=== PATIENT | female | born 1940 | race Two or more races ===

== ENCOUNTER 2018-08-15 11:52 | Inpatient (IN) | payer MEDICARE, MEDICAID ==
[~2018-08-15] VITALS: Ht 162.6 cm; Wt 44.0 kg
[~2018-08-15 11:52] MED LIST: AMLO5TAB4 PO; ATEN50TA PO; INS7030 SUBCUT; PRAV20TA57 PO; VALS160T2 PO; ZOLP10TA6 PO
[2018-08-15] MEDS ORDERED: SODIUM CHLORIDE 0.9% 1,000 ML IV ONE (13:37)
[2018-08-15 14:10] LABS: BASOPHILS % 0.3 % (0.0-2.0); EOSINOPHILS % 0.3 % (0.0-5.0); HEMATOCRIT. 37.4 % (36.0-48.0); HEMOGLOBIN. 12.6 g/dL (12.0-16.0); LYMPHOCYTES % 9.6 % (20.0-50.0); MEAN CORPUSCULAR HEMOGLOBIN 31.5 pg (28.0-32.0); MEAN CORPUSCULAR VOLUME 93.3 fL (81.0-99.0); MONOCYTES % 5.9 % (2.0-8.0); NEUTROPHILS % 83.9 % (40.0-76.0); PLATELET 277 x1000/uL (130-400); RED BLOOD CELL COUNT 4.01 mill/uL (4.2-5.4); RED CELL DISTRIBUTION WIDTH 13.6 % (11.6-14.6)
[2018-08-15 14:16] LABS: PARTIAL THROMBOPLASTIN TIME 28.3 sec (23.4-31.0); PROTHROMBIN TIME 10.2 sec (9.1-11.1)
[2018-08-15 14:18] LABS: CHLORIDE 105 mEq/L (98-107)
[2018-08-15] MEDS ORDERED: DEXTROSE 50% WATER 50ML SYRINGE IV ONE (14:30)
[2018-08-15] MEDS ORDERED: SODIUM CHLORIDE 0.9% 10ML VIAL ONE (15:33)
[2018-08-15] MEDS ORDERED: CEFTRIAXONE 1 G PREMIX 50 ML IV ONE (15:45)
[2018-08-15 16:04] LABS: CLARITY URINE CLEAR (CLEAR); COLOR URINE YELLOW (YELLOW); KETONES URINE NEGATIVE (NEGATIVE); LEUKOCYTE ESTERASE URINE NEGATIVE (NEGATIVE); NITRITE URINE NEGATIVE (NEGATIVE); OCCULT BLOOD URINE NEGATIVE (NEGATIVE); PROTEIN URINE NEGATIVE (NEGATIVE); SPECIFIC GRAVITY URINE 1.005 (1.005-1.030); UROBILINOGEN URINE 0.2 E.U./dL (0.2-1.0)
[2018-08-15] MEDS ORDERED: ONDANSETRON HCL 4MG/2ML INJ IV PRN (17:15)
[2018-08-15] MEDS ORDERED: ACETAMINOPHEN 650MG SUPP PR PRN (17:15)
[2018-08-15] MEDS ORDERED: HYDROCODONE/ACETAMINOPHEN 5/325MG TABLET PO PRN (17:15)
[2018-08-15] MEDS ORDERED: ACETAMINOPHEN 650MG/20.3ML UDC GT PRN (17:15)
[2018-08-15] MEDS ORDERED: HYDROCODONE/ACETAMINOPHEN 10/325MG TABLET PO PRN (17:15)
[2018-08-15] MEDS ORDERED: ACETAMINOPHEN 325MG TABLET PO PRN (17:15)
[2018-08-15] MEDS ORDERED: DEXTROSE 50% WATER 50ML SYRINGE IV PRN (17:15)
[2018-08-15] MEDS ORDERED: INSULIN LISPRO 100 UNITS/ML SUBCUT SCH (18:20)
[2018-08-15] MEDS: BLOOD SUGAR DIAGNOSTIC STRIP TEST SCH (21:00)
[2018-08-15] MEDS: SODIUM CHLORIDE 0.45% 1,000 ML IV SCH (23:54)
[2018-08-15 23:59] LABS: CREATINE KINASE 94 IU/L (26-192); CREATINE KINASE MB FRACTION 1.5 ng/mL (0.5-3.6)
[2018-08-16] VITALS (8 sets, daily range): BP systolic 117–166; BP diastolic 43–67
[2018-08-16] MEDS: BLOOD SUGAR DIAGNOSTIC STRIP TEST SCH ×4 (06:25→20:35)
[2018-08-16 07:24] LABS: BASOPHILS % 0.4 % (0.0-2.0); EOSINOPHILS % 0.4 % (0.0-5.0); HEMATOCRIT. 34.7 % (36.0-48.0); HEMOGLOBIN. 11.8 g/dL (12.0-16.0); LYMPHOCYTES % 19.8 % (20.0-50.0); MEAN CORPUSCULAR HEMOGLOBIN 31.8 pg (28.0-32.0); MEAN CORPUSCULAR VOLUME 93.3 fL (81.0-99.0); MEAN PLATELET VOLUME 8.5 fl (7.4-10.4); MONOCYTES % 6.6 % (2.0-8.0); NEUTROPHILS % 72.8 % (40.0-76.0); PLATELET 251 x1000/uL (130-400); RED BLOOD CELL COUNT 3.72 mill/uL (4.2-5.4); RED CELL DISTRIBUTION WIDTH 13.8 % (11.6-14.6)
[2018-08-16 07:50] LABS: CHLORIDE 108 mEq/L (98-107)
[2018-08-16 08:26] LABS: CREATINE KINASE 84 IU/L (26-192); CREATINE KINASE MB FRACTION 1.2 ng/mL (0.5-3.6); HDL CHOLESTEROL 78 mg/dL (40-59); LDL CHOLESTEROL 74 mg/dL (5-100); T4 FREE 1.31 ng/dL (0.76-1.46)
[2018-08-16] MEDS ORDERED: INFLUENZA VIRUS VACCINE(AFLURIA) 0.5ML SYR IM ONE (09:00)
[2018-08-16] MEDS: INSULIN LISPRO 100 UNITS/ML SUBCUT SCH ×4 (09:10→20:37)
[2018-08-16 12:31] LABS: *AMPHETAMINES SCREEN URINE NEGATIVE (NEGATIVE); *BENZODIAZEPINES SCREEN URINE NEGATIVE (NEGATIVE); *COCAINE SCREEN URINE NEGATIVE (NEGATIVE)
[2018-08-16 12:32] LABS: CANNABINOID URINE SCREEN NEGATIVE (NEGATIVE); METHADONE URINE SCREEN NEGATIVE (NEGATIVE); OPIATES URINE SCREEN NEGATIVE (NEGATIVE); PHENCYCLIDINE URINE SCREEN NEGATIVE (NEGATIVE)
[2018-08-16 13:03] LABS: *BARBITURATES SCREEN URINE NEGATIVE (NEGATIVE)
[2018-08-16] MEDS: SODIUM CHLORIDE 0.45% 1,000 ML IV SCH ×2 (14:14→16:30)
[2018-08-16] MEDS ORDERED: HUM100IN SQ ×2 (14:22)
[2018-08-16] MEDS ORDERED: DOXA2TAB2 MT (14:29)
[2018-08-16] MEDS: ATENOLOL 50 MG TABLET PO SCH (17:21)
[2018-08-16] MEDS: AMLODIPINE 5MG TABLET PO SCH (17:22)
[2018-08-16] MEDS: LOSARTAN POTASSIUM 100 MG TABLET PO SCH (17:22)
[2018-08-16] MEDS: PANTOPRAZOLE SODIUM 40 MG/VIAL IV SCH (20:35)
[2018-08-16] MEDS ORDERED: ATORVASTATIN CALCIUM 20MG TABLET PO SCH (21:00)
[2018-08-16] MEDS ORDERED: ATORVASTATIN CALCIUM 40MG TABLET PO SCH (21:00)
[2018-08-16] MEDS ORDERED: ZOLPIDEM TARTRATE 5MG TABLET PO PRN (21:30)
[2018-08-17] VITALS: BP 150/57
[2018-08-17] MEDS: SODIUM CHLORIDE 0.45% 1,000 ML IV SCH ×2 (00:57→05:30)
[2018-08-17 04:00] VITALS: BP 160/39
[2018-08-17] MEDS: BLOOD SUGAR DIAGNOSTIC STRIP TEST SCH ×2 (06:54→12:20)
[2018-08-17 07:37] LABS: BASOPHILS % 0.4 % (0.0-2.0); HEMATOCRIT. 33.7 % (36.0-48.0); HEMOGLOBIN. 11.7 g/dL (12.0-16.0); LYMPHOCYTES % 23.2 % (20.0-50.0); MEAN CORPUSCULAR HEMOGLOBIN 32.4 pg (28.0-32.0); MEAN CORPUSCULAR VOLUME 93.2 fL (81.0-99.0); MEAN PLATELET VOLUME 8.3 fl (7.4-10.4); MONOCYTES % 7.5 % (2.0-8.0); NEUTROPHILS % 67.9 % (40.0-76.0); PLATELET 246 x1000/uL (130-400); RED BLOOD CELL COUNT 3.62 mill/uL (4.2-5.4); RED CELL DISTRIBUTION WIDTH 13.6 % (11.6-14.6)
[2018-08-17] MEDS: INSULIN LISPRO 100 UNITS/ML SUBCUT SCH ×2 (07:50→13:30)
[2018-08-17 08:00] VITALS: BP_SYST 154; BP_SYST 173; BP_SYST 180; BP_DIAS 55; BP_DIAS 70; BP_DIAS 89
[2018-08-17 08:23] LABS: PARTIAL THROMBOPLASTIN TIME 28.6 sec (23.4-31.0); PROTHROMBIN TIME 10.4 sec (9.1-11.1)
[2018-08-17 08:28] LABS: CHLORIDE 107 mEq/L (98-107)
[2018-08-17 08:32] LABS: PHOSPHORUS 2.5 mg/dL (2.5-4.9)
[2018-08-17] MEDS: PANTOPRAZOLE SODIUM 40 MG/VIAL IV SCH (09:05)
[2018-08-17] MEDS: AMLODIPINE 5MG TABLET PO SCH (09:09)
[2018-08-17] MEDS: ATENOLOL 50 MG TABLET PO SCH (09:09)
[2018-08-17] MEDS: LOSARTAN POTASSIUM 100 MG TABLET PO SCH (09:09)
[2018-08-17] MEDS ORDERED: FENTANYL CITRATE/PF 50MCG/ML 2ML VIAL ONE ×2 (09:48→09:54)
[2018-08-17] MEDS ORDERED: MIDAZOLAM HCL 5 MG/5 ML VIAL ONE (09:48)
[2018-08-17] MEDS ORDERED: FENTANYL CITRATE/PF 50MCG/ML 2ML VIAL IV ONE (11:08)
[2018-08-17] MEDS ORDERED: MIDAZOLAM HCL 5 MG/5 ML VIAL IV ONE (11:09)
[2018-08-17 12:00] VITALS: BP 158/58
[2018-08-17 15:31] VITALS: BP 158/58
== END 2018-08-17 16:21 | disposition home or self-care (01) | DRG 377 ==
LOC: ER 11:52 → EDBEDREQ 15:39 → ENRESERV 19:26 → 6WST 22:27
PROVIDERS: ADMIT Internal Medicine; ATTEND Internal Medicine
PROC: 0DJ08ZZ Inspection of Upper Intestinal Tract, Via Natural or Artificial Opening Endoscopic (ICD-10-PCS; principal; 2018-08-17 10:30)
DX: K29.71 Gastritis, unspecified, with bleeding (principal); R65.11 Systemic inflammatory response syndrome (SIRS) of non-infectious origin with acute organ dysfunction; E44.0 Moderate protein-calorie malnutrition; Z68.1 Body mass index [BMI] 19.9 or less, adult; G90.8 Other disorders of autonomic nervous system; E86.0 Dehydration; I10 Essential (primary) hypertension; E11.649 Type 2 diabetes mellitus with hypoglycemia without coma; E78.5 Hyperlipidemia, unspecified; D64.9 Anemia, unspecified; F03.90 Unspecified dementia, unspecified severity, without behavioral disturbance, psychotic disturbance, mood disturbance, and anxiety; D72.829 Elevated white blood cell count, unspecified; E03.9 Hypothyroidism, unspecified; E78.00 Pure hypercholesterolemia, unspecified; I65.22 Occlusion and stenosis of left carotid artery; Z79.4 Long term (current) use of insulin; Z79.899 Other long term (current) drug therapy
CPT/HCPCS: 36415; 71045; 74176; 80048; 80061; 80305; 82550; 82553; 82693; 82962; 83036; 83735; 83880; 84100; 84439; 84443; 84481; 84484; 86677; 88305; 88312; 88313; 90686; 93005; 93306; 93880; 96361; 96365; 96375; 97162; 99285; A4216; C9113; J0696; J1815; J2250; J2405; J3010; J7030

== ENCOUNTER 2020-06-11 13:10 | Emergency (ER) | payer MEDICARE, MEDICAID ==
[~2020-06-11] VITALS: Ht 149.9 cm; Wt 44.5 kg
[~2020-06-11 13:10] MED LIST changes: +DOXA2TAB2 MT; +HUM100IN SQ; -INS7030 SUBCUT; -PRAV20TA57 PO
[2020-06-11 14:32] LABS: BASOPHILS % 0.3 % (0.0-2.0); EOSINOPHILS % 0.7 % (0.0-5.0); HEMATOCRIT. 33.6 % (36.0-48.0); HEMOGLOBIN. 11.3 g/dL (12.0-16.0); LYMPHOCYTES % 14.9 % (20.0-50.0); MEAN CORPUSCULAR HEMOGLOBIN 31.3 pg (28.0-32.0); MEAN CORPUSCULAR VOLUME 93.1 fL (81.0-99.0); MEAN PLATELET VOLUME 7.8 fl (7.4-10.4); MONOCYTES % 5.9 % (2.0-8.0); NEUTROPHILS % 78.2 % (40.0-76.0); PLATELET 236 x1000/uL (130-400)
[2020-06-11 14:39] LABS: CHLORIDE 107 mEq/L (98-107)
[2020-06-11] MEDS ORDERED: LEVOFLOXACIN 750MG PREMIX 150 ML IV ONE (15:30)
[2020-06-11 17:52] VITALS: BP 155/61
== END 2020-06-11 18:51 | disposition short-term general hospital (02) ==
LOC: ER 13:27 → CANBEDREQ 06-12 09:15
DX: R55 Syncope and collapse (principal); J18.9 Pneumonia, unspecified organism; E11.9 Type 2 diabetes mellitus without complications; I10 Essential (primary) hypertension; E78.00 Pure hypercholesterolemia, unspecified; Z79.899 Other long term (current) drug therapy; Z79.4 Long term (current) use of insulin
CPT/HCPCS: 36415; 71045; 80053; 83880; 84484; 85025; 93005; 96365; 96366; 99285; J1956

== ENCOUNTER 2021-01-11 13:30 | Emergency (ER) | payer MEDICARE, MEDICAID ==
[~2021-01-11] VITALS: Ht 149.9 cm; Wt 55.0 kg
[2021-01-11] MEDS ORDERED: SODIUM CHLORIDE 0.9% 1,000 ML IV ONE (14:00)
[2021-01-11 14:18] LABS: BASOPHILS % 0.4 % (0.0-2.0); EOSINOPHILS % 1.6 % (0.0-5.0); HEMATOCRIT. 33.9 % (36.0-48.0); HEMOGLOBIN. 11.3 g/dL (12.0-16.0); LYMPHOCYTES % 22.6 % (20.0-50.0); MEAN CORPUSCULAR HEMOGLOBIN 30.7 pg (28.0-32.0); MEAN PLATELET VOLUME 8.2 fl (7.4-10.4); MONOCYTES % 7.8 % (2.0-8.0); NEUTROPHILS % 67.6 % (40.0-76.0); PLATELET 248 x1000/uL (130-400); RED BLOOD CELL COUNT 3.69 mill/uL (4.2-5.4); RED CELL DISTRIBUTION WIDTH 14.5 % (11.6-14.6)
[2021-01-11 14:25] LABS: PROTHROMBIN TIME 10.4 sec (9.6-11.0)
[2021-01-11 14:29] LABS: CHLORIDE 110 mEq/L (98-107)
[2021-01-11 23:30] VITALS: BP 145/44
== END 2021-01-12 00:11 | disposition admitted as inpatient to this hospital (09) ==
LOC: ER 13:30
DX: R55 Syncope and collapse (principal); R53.1 Weakness; R42 Dizziness and giddiness; E11.9 Type 2 diabetes mellitus without complications; I10 Essential (primary) hypertension; Z79.899 Other long term (current) drug therapy
CPT/HCPCS: 36415; 71045; 80053; 83880; 84484; 85025; 85610; 93005; 96360; 96361; 99285; J7030

== ENCOUNTER 2021-06-24 11:56 | Emergency (ER) | payer MEDICARE, MEDICAID ==
[~2021-06-24] VITALS: Ht 160 cm; Wt 60.0 kg
[2021-06-24] MEDS ORDERED: SODIUM CHLORIDE 0.9% 1,000 ML IV ONE (12:30)
[2021-06-24 14:30] LABS: BASOPHILS % 0.4 % (0.0-2.0); EOSINOPHILS % 0.3 % (0.0-5.0); HEMATOCRIT. 32.9 % (36.0-48.0); HEMOGLOBIN. 11.2 g/dL (12.0-16.0); LYMPHOCYTES % 16.9 % (20.0-50.0); MEAN CORPUSCULAR HEMOGLOBIN 31.7 pg (28.0-32.0); MEAN CORPUSCULAR VOLUME 93.2 fL (81.0-99.0); MEAN PLATELET VOLUME 7.9 fl (7.4-10.4); MONOCYTES % 6.6 % (2.0-8.0); NEUTROPHILS % 75.8 % (40.0-76.0); PLATELET 227 x1000/uL (130-400); RED BLOOD CELL COUNT 3.53 mill/uL (4.2-5.4); RED CELL DISTRIBUTION WIDTH 14.6 % (11.6-14.6)
[2021-06-24 14:36] LABS: CHLORIDE 115 mEq/L (98-107)
[2021-06-24] MEDS ORDERED: ONDANSETRON HCL 4MG/2ML INJ IV ONE (14:45)
[2021-06-25] VITALS: BP 171/70
== END 2021-06-24 23:53 | disposition short-term general hospital (02) ==
LOC: ER 12:12 → CANBEDREQ 06-25 16:34
DX: R55 Syncope and collapse (principal); E11.649 Type 2 diabetes mellitus with hypoglycemia without coma; E86.0 Dehydration; D64.9 Anemia, unspecified; I10 Essential (primary) hypertension; Z79.899 Other long term (current) drug therapy
CPT/HCPCS: 36415; 70450; 71045; 80053; 82962; 83880; 84484; 85025; 93005; 96360; 99285; J7030